=== PATIENT | male | born 1995 | race Hispanic/Latino ===

== ENCOUNTER → 2016-08-10 | Outpatient (CLI) | payer OTHER ==
[~2016-08-10] MED LIST: ASPI81TA PO; METHACHOLINE KIT (J7674) INH ONE
== END ==
LOC: M CARPUL 07:14
PROVIDERS: ATTEND Nurse Practitioner Adult Health
DX: R06.02 Shortness of breath (principal)

== ENCOUNTER 2018-02-26 21:45 | Emergency (ER) | payer OTHER ==
[2018-02-26] MEDS: TETRACAINE 0.5% OPHTH SOLN 4ML OS (22:11)
[2018-02-26] MEDS: ERYTHROMYCIN OPHTH OINT OS (22:44)
== END 2018-02-26 22:57 | disposition home or self-care (01) ==
LOC: M ED 21:45
DX: S05.02XA Injury of conjunctiva and corneal abrasion without foreign body, left eye, initial encounter (principal); W22.8XXA Striking against or struck by other objects, initial encounter; Y92.138 Other place on military base as the place of occurrence of the external cause; Z79.82 Long term (current) use of aspirin
CPT/HCPCS: 99284